=== PATIENT | female | born 1960 | race African-American/Black ===

== ENCOUNTER 2023-06-22 18:29 | Emergency (ER) | payer OTHER ==
[~2023-06-22] VITALS: Ht 165.1 cm; Wt 68.0 kg
[2023-06-22 18:32] VITALS: O2SAT 98
[2023-06-22] MEDS ORDERED: KETOROLAC 30MG/ML VIAL IM STA (20:44)
[2023-06-22 21:08] VITALS: BP 220/105; PULSE 110; RESP 20
[2023-06-22] MEDS ORDERED: NAPR-681 MT (21:23)
[2023-06-22] MEDS ORDERED: HYDR-4001 MT (21:23)
[2023-06-22] MEDS ORDERED: ACETAMINOPHEN 325MG TABLET PO STA (21:47)
[2023-06-22] MEDS ORDERED: CLONIDINE 0.1MG TABLET PO ONE (22:00)
[2023-06-22 22:02] VITALS: TEMP 98.3
== END 2023-06-22 22:05 | disposition home or self-care (01) ==
LOC: ER 19:32
DX: S92.322A Displaced fracture of second metatarsal bone, left foot, initial encounter for closed fracture (principal); E11.9 Type 2 diabetes mellitus without complications; I10 Essential (primary) hypertension; V09.9XXA Pedestrian injured in unspecified transport accident, initial encounter; Y93.89 Activity, other specified; Y92.89 Other specified places as the place of occurrence of the external cause; Y99.8 Other external cause status
CPT/HCPCS: 73610; 73630; 29515; 96372; 99284; J1885; Z7610 ×3